=== PATIENT | female | born 1980 | race Caucasian/White ===

== ENCOUNTER 2017-01-20 22:06 | Emergency (ER) | payer MEDICARE, OTHER ==
[2017-01-20 20:42] LABS: BASOPHILS 0.2 %; BASOPHILS ABSOLUTE 0.02 10/3/uL (0.0-0.16); EOSINOPHILS 2.5 %; EOSINOPHILS ABSOLUTE 0.26 10/3/uL (0.0-0.53); HEMATOCRIT 48.8 % (36.0-48.0); HEMOGLOBIN 17.3 g/dL (12.0-16.0); IMMATURE GRANULOCYTES 0.2 %; IMMATURE GRANULOCYTES ABSOLUTE 0.02 10/3/uL (0.0-0.11); LYMPHOCYTES 31.4 %; LYMPHOCYTES ABSOLUTE 3.24 10/3/uL (0.67-4.30); MANUAL DIFF NO %; MEAN CORPUS HGB CONC 35.5 g/dL (32.0-36.0); MEAN CORPUSCULAR HEMOGLOB 31.6 pg (26.0-34.0); MEAN CORPUSCULAR VOLUME 89.2 fL (80-100); MEAN PLATELET VOLUME 11.6 fL (9.2-13.0); MONOCYTES 7.2 %; MONOCYTES ABSOLUTE 0.74 10/3/uL (0.21-1.20); NEUTROPHILS 58.5 %; NEUTROPHILS ABSOLUTE 6.05 10/3/uL (2.02-8.40); PLATELET COUNT 215 10/3/uL (150-400); RBC DISTRIBUTION WIDTH 13.1 % (12.0-16.0); RED CELL COUNT 5.47 10/6/uL (4.0-5.6); WHITE BLOOD CELLS 10.3 10/3/uL (4.5-10.5)
[2017-01-20 20:58] LABS: BUN (BLOOD UREA NITROGEN) 9 MG/DL (6-23); CALCIUM, SERUM 9.9 MG/DL (8.5-10.4); CHEST PAIN PROFILE TAT 0 Hrs 20 Mins; CHLORIDE, SERUM 106 MMOL/L (96-112); CREATININE 0.71 MG/DL (0.55-1.02); GFR AFRICAN AMERICAN 125 ML/MIN (>=60); GFR NON AFRICAN AMERICAN 108 ML/MIN (>=60); PARTIAL THROMBO TIME 28.1 SEC (22.5-37.2); POTASSIUM, SERUM 3.9 MMOL/L (3.5-5.3); PROTIME (NOT ORD) 13.2 SEC (12.0-14.5); SODIUM, SERUM 140 MMOL/L (135-148); TROPONIN I <0.02 NG/ML (<0.05)
[2017-01-20 20:59] LABS: CO2 (CARBON DIOXIDE) 29 MMOL/L (24-34); GLUCOSE, SERUM 157 MG/DL (60-99)
[2017-01-20 21:00] LABS: D-DIMER QUANTITATIVE 0.47 ug/mLFEU (< 0.50)
[~2017-01-20 22:06] MED LIST: AMB5 PO; BACLOFEN20 MG PO; BIOTIN10 MG PO; BIOTIN5 MG OR; BUSPAR15 M1 PO; CEFT5 PO; COMP10B PO; CYMBALTA60 PO; GLUCPH PO; IMITREX50 PO; LAMICTAL25 PO; MACROBID PO; MONODOX50 MG PO; NEUR300 PO; NORCO1 TA1 PO; PERCOCET1 TA2 PO; PRILO PO; PRIN10 PO; PRIN20 PO; UROGESIC-BLU PO; VENTOLIN HFA INH; ZOFRAN4 PO
== END 2017-01-20 22:32 | disposition home or self-care (01) ==
LOC: ER 22:06
PROVIDERS: Emergency Medicine
DX: J44.9 Chronic obstructive pulmonary disease, unspecified (principal); F17.200 Nicotine dependence, unspecified, uncomplicated; I10 Essential (primary) hypertension; E11.9 Type 2 diabetes mellitus without complications; F31.9 Bipolar disorder, unspecified; Z88.1 Allergy status to other antibiotic agents; Z79.899 Other long term (current) drug therapy
CPT/HCPCS: 71010; 80048; 83735; 83880; 84484; 85025; 85379; 85610; 85730; 93005; 99285; A9270-GY

== ENCOUNTER 2017-03-03 18:31 | Emergency (ER) | payer MEDICARE, OTHER ==
[2017-03-03 18:57] LABS: BASOPHILS 0.2 %; BASOPHILS ABSOLUTE 0.02 10/3/uL (0.0-0.16); EOSINOPHILS 2.3 %; EOSINOPHILS ABSOLUTE 0.26 10/3/uL (0.0-0.53); ER CBC TAT 0 Hrs 05 Mins; HEMATOCRIT 50.2 % (36.0-48.0); HEMOGLOBIN 17.5 g/dL (12.0-16.0); IMMATURE GRANULOCYTES 0.3 %; IMMATURE GRANULOCYTES ABSOLUTE 0.03 10/3/uL (0.0-0.11); LYMPHOCYTES 35.7 %; LYMPHOCYTES ABSOLUTE 4.05 10/3/uL (0.67-4.30); MANUAL DIFF NO %; MEAN CORPUS HGB CONC 34.9 g/dL (32.0-36.0); MEAN CORPUSCULAR HEMOGLOB 31.4 pg (26.0-34.0); MEAN CORPUSCULAR VOLUME 90.1 fL (80-100); MEAN PLATELET VOLUME 11.4 fL (9.2-13.0); MONOCYTES 7.6 %; MONOCYTES ABSOLUTE 0.86 10/3/uL (0.21-1.20); NEUTROPHILS 53.9 %; NEUTROPHILS ABSOLUTE 6.11 10/3/uL (2.02-8.40); PLATELET COUNT 220 10/3/uL (150-400); RBC DISTRIBUTION WIDTH 12.4 % (12.0-16.0); RED CELL COUNT 5.57 10/6/uL (4.0-5.6); WHITE BLOOD CELLS 11.3 10/3/uL (4.5-10.5)
[2017-03-03 19:11] LABS: ASCORBIC ACID (UR NOT ORDER) NEG (NEG); BILIRUBIN, URINE NEGATIVE (NEG); ER URINALYSIS TAT 0 Hrs 19 Mins; KETONE, URINE NEGATIVE (NEG); LEUKOCYTE ESTERASE(NOT OR TRACE (NEG); NITRITE (URINE) NEG (NEG); WBC (NOT ORDERED) (RFLEX) 11 (0-5)
[2017-03-03 19:14] LABS: ALBUMIN 3.6 G/DL (3.5-5.0); BUN (BLOOD UREA NITROGEN) 11 MG/DL (6-23); CALCIUM, SERUM 9.7 MG/DL (8.5-10.4); CHLORIDE, SERUM 103 MMOL/L (96-112); CO2 (CARBON DIOXIDE) 25 MMOL/L (24-34); CREATININE 0.78 MG/DL (0.55-1.02); GFR AFRICAN AMERICAN 112 ML/MIN (>=60); GFR NON AFRICAN AMERICAN 96 ML/MIN (>=60); SGPT(ALT) 279 U/L (5-65); SODIUM, SERUM 137 MMOL/L (135-148); TOTAL BILIRUBIN 0.5 MG/DL (0-1.2); TOTAL PROTEIN 7.8 G/DL (6.0-8.5)
[2017-03-03 19:16] LABS: A/G RATIO 0.9 (0.7-1.9); ALKALINE PHOSPHATASE 100 U/L (45-117); GLOBULIN 4.2 G/DL (2.5-4.1); GLUCOSE, SERUM 110 MG/DL (60-99)
[2017-03-03 19:17] LABS: POTASSIUM, SERUM 4.3 MMOL/L (3.5-5.3); SGOT(AST) 192 U/L (5-40)
== END 2017-03-03 21:35 | disposition home or self-care (01) ==
LOC: ER 18:31
PROVIDERS: Emergency Medicine
DX: N39.0 Urinary tract infection, site not specified (principal); I10 Essential (primary) hypertension; F31.9 Bipolar disorder, unspecified; E11.9 Type 2 diabetes mellitus without complications; F17.200 Nicotine dependence, unspecified, uncomplicated; Z88.1 Allergy status to other antibiotic agents; Z79.84 Long term (current) use of oral hypoglycemic drugs; Z79.899 Other long term (current) drug therapy
CPT/HCPCS: 74176; 80053; 81001; 83690; 84703; 85025; 99284

== ENCOUNTER 2017-03-14 23:47 | Emergency (ER) | payer MEDICARE, OTHER ==
[2017-03-15 00:56] LABS: BASOPHILS 0.3 %; BASOPHILS ABSOLUTE 0.03 10/3/uL (0.0-0.16); EOSINOPHILS 2.2 %; EOSINOPHILS ABSOLUTE 0.23 10/3/uL (0.0-0.53); HEMOGLOBIN 17.2 g/dL (12.0-16.0); IMMATURE GRANULOCYTES 0.2 %; IMMATURE GRANULOCYTES ABSOLUTE 0.02 10/3/uL (0.0-0.11); LYMPHOCYTES 37.1 %; LYMPHOCYTES ABSOLUTE 3.84 10/3/uL (0.67-4.30); MEAN CORPUS HGB CONC 35.1 g/dL (32.0-36.0); MEAN CORPUSCULAR HEMOGLOB 31.3 pg (26.0-34.0); MEAN CORPUSCULAR VOLUME 89.3 fL (80-100); MEAN PLATELET VOLUME 11.4 fL (9.2-13.0); MONOCYTES 7.9 %; MONOCYTES ABSOLUTE 0.82 10/3/uL (0.21-1.20); NEUTROPHILS 52.3 %; PLATELET COUNT 220 10/3/uL (150-400); RBC DISTRIBUTION WIDTH 12.1 % (12.0-16.0); RED CELL COUNT 5.49 10/6/uL (4.0-5.6); WHITE BLOOD CELLS 10.3 10/3/uL (4.5-10.5)
[2017-03-15 00:57] LABS: MANUAL DIFF NO %
[2017-03-15 01:07] LABS: ASCORBIC ACID (UR NOT ORDER) NEG (NEG); BILIRUBIN, URINE NEGATIVE (NEG); ER URINALYSIS TAT 0 Hrs 00 Mins; KETONE, URINE NEGATIVE (NEG); LEUKOCYTE ESTERASE(NOT OR NEG (NEG); NITRITE (URINE) NEG (NEG); WBC (NOT ORDERED) (RFLEX) 4 (0-5)
[2017-03-15 01:24] LABS: A/G RATIO 0.9 (0.7-1.9); ALBUMIN 3.6 G/DL (3.5-5.0); CALCIUM, SERUM 9.8 MG/DL (8.5-10.4); CHLORIDE, SERUM 107 MMOL/L (96-112); CO2 (CARBON DIOXIDE) 27 MMOL/L (24-34); CREATININE 0.68 MG/DL (0.55-1.02); GFR AFRICAN AMERICAN 129 ML/MIN (>=60); GFR NON AFRICAN AMERICAN 111 ML/MIN (>=60); GLOBULIN 3.8 G/DL (2.5-4.1); GLUCOSE, SERUM 119 MG/DL (60-99); SGPT(ALT) 213 U/L (5-65); SODIUM, SERUM 141 MMOL/L (135-148); TOTAL BILIRUBIN 0.3 MG/DL (0-1.2); TOTAL PROTEIN 7.4 G/DL (6.0-8.5)
[2017-03-15 01:26] LABS: ALKALINE PHOSPHATASE 84 U/L (45-117); BUN (BLOOD UREA NITROGEN) 7 MG/DL (6-23); DIRECT BILIRUBIN < 0.1 MG/DL (0.0-0.4); INDIRECT BILIRUBIN(NOT ORDER) 0.2 MG/DL (0.1-0.9); SGOT(AST) 127 U/L (5-40)
== END 2017-03-15 02:13 | disposition home or self-care (01) ==
LOC: ER 23:47
PROVIDERS: Emergency Medicine
DX: R10.30 Lower abdominal pain, unspecified (principal); R11.2 Nausea with vomiting, unspecified; F11.90 Opioid use, unspecified, uncomplicated; F31.9 Bipolar disorder, unspecified; E11.9 Type 2 diabetes mellitus without complications; I10 Essential (primary) hypertension; F17.200 Nicotine dependence, unspecified, uncomplicated; Z87.442 Personal history of urinary calculi; Z88.1 Allergy status to other antibiotic agents; Z79.84 Long term (current) use of oral hypoglycemic drugs; Z79.899 Other long term (current) drug therapy
CPT/HCPCS: 74022; 80053; 80076; 81001; 82248; 83690; 84703; 85025; 96372; 99284; A9270-GY